=== PATIENT | male | born 1945 | race Asian ===

== ENCOUNTER 2020-03-15 09:30 | Emergency (ER) | payer OTHER, MEDICARE ==
[~2020-03-15] VITALS: Ht 162.6 cm; Wt 99.8 kg
[2020-03-15 09:37] VITALS: BP 150/67
[2020-03-15] MEDS ORDERED: HYDROcodone-ACET 5/325MG TAB PO ONE (10:30)
== END 2020-03-15 10:56 | disposition home or self-care (01) ==
LOC: ER 09:30
DX: M47.892 Other spondylosis, cervical region (principal); M19.011 Primary osteoarthritis, right shoulder; E11.9 Type 2 diabetes mellitus without complications; M10.9 Gout, unspecified; E78.5 Hyperlipidemia, unspecified; I10 Essential (primary) hypertension
CPT/HCPCS: 72040; 73030

== ENCOUNTER 2020-06-13 20:35 | Emergency (ER) | payer OTHER, MEDICARE ==
[~2020-06-13] VITALS: Ht 165.1 cm; Wt 98.4 kg
[2020-06-13 21:15] VITALS: BP 147/88
[2020-06-13] MEDS ORDERED: LIDOCAINE 1% HCL (LOCAL ANESTH.) INJ 20ML MDV IJ ONE (23:00)
== END 2020-06-13 23:19 | disposition home or self-care (01) ==
LOC: ER 20:35
DX: S62.634A Displaced fracture of distal phalanx of right ring finger, initial encounter for closed fracture (principal); S61.214A Laceration without foreign body of right ring finger without damage to nail, initial encounter; E11.9 Type 2 diabetes mellitus without complications; I10 Essential (primary) hypertension; E78.5 Hyperlipidemia, unspecified; W18.00XA Striking against unspecified object with subsequent fall, initial encounter; Y93.89 Activity, other specified; Y92.89 Other specified places as the place of occurrence of the external cause; Y99.8 Other external cause status
CPT/HCPCS: 12002; 29130; 73140; 99283; J2001

== ENCOUNTER 2020-09-30 07:53 | Emergency (ER) | payer MEDICARE, OTHER ==
[~2020-09-30] VITALS: Ht 160 cm; Wt 97.5 kg
[2020-09-30 09:16] LABS: Basophils # (auto) 0 10 ^3/uL (0-0.2); Eosinophils # (auto) 0.1 10 ^3/uL (0-0.8); Red Cell Distribution Width 14.2 % (11.8-14.3)
[2020-09-30 09:18] LABS: Basophils % (auto) 0.4 % (0.0-2.0); Eosinophils % (auto) 1.4 % (0.0-7.0); Hematocrit 37.3 % (41.0-53.0); Hemoglobin 12.2 g/dL (13.5-17.5); Lymphocytes # (auto) 1.4 10 ^3/uL (0.4-5.4); Lymphocytes % (auto) 19.3 % (10.0-50.0); Mean Corpuscular Hemoglobin 30.4 pg (28.0-32.0); Mean Corpuscular Hgb Conc. 32.6 g/dL (32.0-36.0); Mean Corpuscular Volume 93.2 fL (80.0-100.0); Monocytes # (auto) 0.5 10 ^3/uL (0-1.3); Monocytes % (auto) 6.7 % (0.0-12.0); Neutrophils # (auto) 5.1 10 ^3/uL (1.6-8.6); Neutrophils % (auto) 72.2 % (37.0-80.0); Platelet Count (auto) 59 10^3/uL (140-450)
[2020-09-30 09:28] LABS: INR 1.08 (0.9-1.15)
[2020-09-30 12:21] VITALS: BP 148/57
== END 2020-09-30 12:26 | disposition home or self-care (01) ==
LOC: ER 07:53
DX: U07.1 COVID-19 (principal); R04.0 Epistaxis; E11.9 Type 2 diabetes mellitus without complications; E78.5 Hyperlipidemia, unspecified; I10 Essential (primary) hypertension
CPT/HCPCS: 36415; 85025; 85610; 85730

== ENCOUNTER 2022-10-11 12:09 | Emergency (ER) | payer MEDICARE, OTHER ==
[~2022-10-11] VITALS: Ht 162.6 cm; Wt 90.0 kg
[2022-10-11] MEDS ORDERED: IOHEXOL 300 MG/ML 100ML BOTTLE IJ ONE (12:53)
[2022-10-11 13:18] LABS: Basophils # (auto) 0 10 ^3/uL (0-0.2); Basophils % (auto) 0.6 % (0.0-2.0); Eosinophils # (auto) 0.4 10 ^3/uL (0-0.8); Eosinophils % (auto) 5.1 % (0.0-7.0); Hematocrit 39.5 % (41.0-53.0); Hemoglobin 13.2 g/dL (13.5-17.5); Lymphocytes # (auto) 1.3 10 ^3/uL (0.4-5.4); Lymphocytes % (auto) 17.3 % (10.0-50.0); Mean Corpuscular Hemoglobin 31.4 pg (28.0-32.0); Mean Corpuscular Hgb Conc. 33.4 g/dL (32.0-36.0); Mean Corpuscular Volume 94.1 fL (80.0-100.0); Monocytes # (auto) 0.3 10 ^3/uL (0-1.3); Monocytes % (auto) 4.4 % (0.0-12.0); Neutrophils # (auto) 5.3 10 ^3/uL (1.6-8.6); Neutrophils % (auto) 72.6 % (37.0-80.0); Red Cell Distribution Width 13.8 % (11.8-14.3); White Blood Cell 7.3 10^3/uL (4.4-10.8)
[2022-10-11 13:24] LABS: INR 1.06 (0.9-1.15); Partial Thromboplastin Time 26.4 sec (24.6-33.4)
[2022-10-11 13:25] LABS: Albumin 3.6 g/dL (3.4-5.0); Calcium 8.9 mg/dL (8.5-10.1); Potassium 3.9 mmol/L (3.5-5.1)
[2022-10-11 13:29] LABS: BUN/Creatinine Ratio 15.6; Bilirubin, Total 0.6 mg/dL (0.2-1.0); Total Protein 6.8 g/dL (6.4-8.2)
[2022-10-11 22:00] VITALS: BP 115/52
== END 2022-10-11 22:12 | disposition home or self-care (01) ==
LOC: ER 12:09
DX: K92.1 Melena (principal); I72.3 Aneurysm of iliac artery
CPT/HCPCS: 36415; 74177; 80053; 85025; 85610; 85730; 93971; 99285; Q9967

== ENCOUNTER 2023-09-08 15:39 | Emergency (ER) | payer MEDICARE, OTHER ==
[~2023-09-08] VITALS: Ht 162.6 cm; Wt 94.0 kg
[2023-09-08] MEDS ORDERED: CEFU500T43 PO (22:29)
[2023-09-08 22:56] VITALS: BP 141/67; PULSE 61; RESP 18; O2SAT 97
== END 2023-09-08 22:58 | disposition home or self-care (01) ==
LOC: ER 15:39
DX: L03.116 Cellulitis of left lower limb (principal); E11.9 Type 2 diabetes mellitus without complications; I10 Essential (primary) hypertension; E78.5 Hyperlipidemia, unspecified
CPT/HCPCS: 73590; 82962; 99283; J7030

== ENCOUNTER 2023-11-11 10:44 | Inpatient (IN) | payer MEDICARE, OTHER ==
[2023-11-11] VITALS (12 sets, daily range): BP systolic 103–140; BP diastolic 33–60; PULSE 79–106; RESP 16–26; TEMP 97.9–98.7; O2SAT 100
[~2023-11-11] VITALS: Ht 162.6 cm; Wt 94.1 kg
[~2023-11-11 10:44] MED LIST: CEFU500T43 PO
[2023-11-11 11:33] LABS: Basophils # (auto) 0.1 10 ^3/uL (0-0.2)
[2023-11-11 11:35] LABS: Basophils % (auto) 0.4 % (0.0-2.0); Eosinophils # (auto) 0.1 10 ^3/uL (0-0.8); Eosinophils % (auto) 0.4 % (0.0-7.0); Hematocrit 15.4 % (41.0-53.0); Lymphocytes # (auto) 1.4 10 ^3/uL (0.4-5.4); Lymphocytes % (auto) 10.3 % (10.0-50.0); Mean Corpuscular Hemoglobin 29.2 pg (28.0-32.0); Mean Corpuscular Hgb Conc. 29.9 g/dL (32.0-36.0); Mean Corpuscular Volume 97.7 fL (80.0-100.0); Monocytes # (auto) 0.6 10 ^3/uL (0-1.3); Monocytes % (auto) 4.3 % (0.0-12.0); Neutrophils # (auto) 11.8 10 ^3/uL (1.6-8.6); Neutrophils % (auto) 84.6 % (37.0-80.0); Nucleated Red Blood Cells % 0.1 %; Red Blood Cells 1.58 10^6/uL (4.5-5.90); Red Cell Distribution Width 16.7 % (11.8-14.3)
[2023-11-11 11:39] LABS: Hemoglobin 4.6 g/dL (13.5-17.5)
[2023-11-11 11:51] LABS: Alanine Aminotransferase 31 U/L (7-40); Albumin 2.9 g/dL (3.2-4.8); Alkaline Phosphatase 75 U/L (46-116); Anion Gap 17 (5-15); Aspartate Aminotransferase 19 U/L (13-40); BUN/Creatinine Ratio 27.3 (10.0-20.0); Bilirubin, Total 0.3 mg/dL (0.2-1.0); Blood Urea Nitrogen 33 mg/dL (9-23); Calcium 7.9 mg/dL (8.7-10.4); Carbon Dioxide 14 mmol/L (20-30); Chloride 108 mmol/L (98-107); Glucose 310 mg/dL (74-106); Lipase 29 U/L (12-53); Magnesium 1.8 mg/dL (1.6-2.6); Potassium 4.4 mmol/L (3.5-5.1); Sodium 139 mmol/L (136-145); Total Protein 4.8 g/dL (5.7-8.2)
[2023-11-11] MEDS ORDERED: PANTOPRAZOLE 40 MG/10 ML VIAL INJ IV ONE ×2 (12:15→13:45)
[2023-11-11] MEDS ORDERED: SODIUM CHLORIDE 0.9% 1,000 ML IV ONE ×2 (12:15→13:30)
[2023-11-11 12:32] LABS: Lactic Acid w/Reflex 8.3 mmol/L (0.4-2.0)
[2023-11-11] MEDS ORDERED: PIPERACILLIN-TAZOB 3.375GM 100 ML IV ONE (12:45)
[2023-11-11] MEDS ORDERED: PANTOPRAZOLE 40mg/50ML NS AE 50 ML IV ONE ×2 (13:30→13:45)
[2023-11-11] MEDS ORDERED: SODIUM CHLORIDE 0.9% 1,000 ML IV SCH (13:45)
[2023-11-11] MEDS ORDERED: VANCOMYCIN PER PHARMACY 0 MG IV SCH (13:45)
[2023-11-11] MEDS ORDERED: DOCUSATE SOD 100 MG CAP PO PRN (13:45)
[2023-11-11] MEDS ORDERED: ONDANSETRON HCL 4 MG/2 ML VIAL IV PRN (13:45)
[2023-11-11] MEDS ORDERED: DEXTROSE (50%) 50ML SYRG IV PRN (13:45)
[2023-11-11] MEDS ORDERED: MORPHINE SULFATE INJ 2 MG/ml SYRG IV PRN (13:45)
[2023-11-11] MEDS ORDERED: FUROSEMIDE 20 MG/2 ML VIAL IV ONE (13:45)
[2023-11-11] MEDS ORDERED: CEFEPIME 2GM/50ML NS 50 ML IV ONE ×2 (14:15)
[2023-11-11] MEDS: OCTREOTIDE ACETATE 500 MCG in SODIUM CHL 0.9% 99 ML IV SCH ×2 (14:39→23:27)
[2023-11-11 14:49] LABS: INR 1.21 (0.9-1.15); Prothrombin Time 12.5 sec (9.3-11.8)
[2023-11-11] MEDS ORDERED: VANCOMYCIN 1GM/200ML 200 ML IV ONE (15:15)
[2023-11-11] MEDS: PANTOPRAZOLE 40mg/50ML NS AE 50 ML IV SCH ×2 (18:04→22:45)
[2023-11-11] MEDS: ACCU-CHEK COMFORT CURVE STRIP VI SCH (18:11)
[2023-11-11] MEDS: InsuLIN REG 1unit/0.01ml Soln (100units/ml) SC SCH (18:12)
[2023-11-11] MEDS: CEFEPIME 2GM/50ML NS 50 ML IV SCH (21:22)
[2023-11-11] MEDS: SODIUM CHLORIDE 0.9% 1,000 ML IV SCH (21:22)
[2023-11-11] MEDS ORDERED: OCTREOTIDE ACETATE 500 MCG/ML VL ONE (23:22)
[2023-11-12] MEDS: ACCU-CHEK COMFORT CURVE STRIP VI SCH ×5 (00:17→23:47)
[2023-11-12] MEDS: InsuLIN REG 1unit/0.01ml Soln (100units/ml) SC SCH ×4 (00:21→18:23)
[2023-11-12 00:50] VITALS: BP 116/58; PULSE 83; RESP 19; TEMP 97.8
[2023-11-12 00:53] LABS: Urine Epithelial Cast None Seen /hpf (<5)
[2023-11-12 01:02] LABS: Urine Bacteria NONE SEEN /hpf (None Seen); Urine Blood Negative /uL (Negative); Urine Clarity Clear (Clear); Urine Color Colorless (Yellow); Urine Protein, UAD Negative (Negative); Urine Specific Gravity 1.009 (1.001-1.035); Urine Urobilinogen Normal (Negative); Urine WBC 46 /hpf (0 - 3); Urine pH 5.5 (5.0-8.0)
[2023-11-12 02:36] LABS: Hematocrit 25.4 % (41.0-53.0); Hemoglobin 8.2 g/dL (13.5-17.5)
[2023-11-12] MEDS: PANTOPRAZOLE 40mg/50ML NS AE 50 ML IV SCH ×4 (05:15→19:48)
[2023-11-12 05:49] LABS: Alanine Aminotransferase 22 U/L (7-40); Alkaline Phosphatase 71 U/L (46-116); Anion Gap 9 (5-15); Aspartate Aminotransferase 16 U/L (13-40); BUN/Creatinine Ratio 20.4 (10.0-20.0); Blood Urea Nitrogen 22 mg/dL (9-23); Calcium 7.8 mg/dL (8.7-10.4); Carbon Dioxide 22 mmol/L (20-30); Chloride 113 mmol/L (98-107); Potassium 3.7 mmol/L (3.5-5.1); Sodium 144 mmol/L (136-145)
[2023-11-12 05:50] LABS: Bilirubin, Total 0.3 mg/dL (0.2-1.0); Total Protein 5.1 g/dL (5.7-8.2)
[2023-11-12] MEDS: CEFEPIME 2GM/50ML NS 50 ML IV SCH ×3 (05:58→22:47)
[2023-11-12 05:59] LABS: Basophils # (auto) 0 10 ^3/uL (0-0.2); Eosinophils # (auto) 0.4 10 ^3/uL (0-0.8); Hemoglobin 8.4 g/dL (13.5-17.5); Lymphocytes # (auto) 0.7 10 ^3/uL (0.4-5.4); Lymphocytes % (auto) 7.9 % (10.0-50.0); Monocytes # (auto) 0.2 10 ^3/uL (0-1.3); Neutrophils # (auto) 7.2 10 ^3/uL (1.6-8.6)
[2023-11-12 06:02] LABS: Basophils % (auto) 0.1 % (0.0-2.0); Eosinophils % (auto) 4.6 % (0.0-7.0); Hematocrit 25.3 % (41.0-53.0); Mean Corpuscular Hemoglobin 30.4 pg (28.0-32.0); Mean Corpuscular Hgb Conc. 33.4 g/dL (32.0-36.0); Monocytes % (auto) 2.9 % (0.0-12.0); Neutrophils % (auto) 84.5 % (37.0-80.0); Nucleated Red Blood Cells % 0.5 %; Red Blood Cells 2.78 10^6/uL (4.5-5.90); Red Cell Distribution Width 15.6 % (11.8-14.3); White Blood Cell 8.5 10^3/uL (4.4-10.8)
[2023-11-12 06:06] LABS: Glucose 121 mg/dL (74-106)
[2023-11-12 07:50] VITALS: PULSE 89; RESP 15; O2SAT 93
[2023-11-12] MEDS: OCTREOTIDE ACETATE 500 MCG in SODIUM CHL 0.9% 99 ML IV SCH (10:12)
[2023-11-12] MEDS: VANCOMYCIN 1GM/200ML 200 ML IV SCH (10:13)
[2023-11-12] MEDS: SODIUM CHLORIDE 0.9% 1,000 ML IV SCH (11:30)
[2023-11-12 13:46] LABS: Hematocrit 27.4 % (41.0-53.0); Hemoglobin 8.7 g/dL (13.5-17.5)
[2023-11-12 20:42] VITALS: PULSE 85; RESP 23; O2SAT 96
[2023-11-12] MEDS: SUCRALFATE 1 GM/10 ML ORAL SUSP GT SCH (22:47)
[2023-11-12 23:56] VITALS: BP 105/50; PULSE 85; RESP 18; TEMP 36.7; O2SAT 97
[2023-11-13] VITALS (7 sets, daily range): BP systolic 92–139; BP diastolic 40–74; PULSE 78–98; RESP 16–20; TEMP 97.4–98.5; O2SAT 95–97
[2023-11-13] MEDS: InsuLIN REG 1unit/0.01ml Soln (100units/ml) SC SCH ×4 (00:11→18:23)
[2023-11-13] MEDS: PANTOPRAZOLE 40mg/50ML NS AE 50 ML IV SCH ×5 (01:27→22:10)
[2023-11-13] MEDS: SODIUM CHLORIDE 0.9% 1,000 ML IV SCH ×3 (01:36→03:34)
[2023-11-13] MEDS: VANCOMYCIN 1GM/200ML 200 ML IV SCH (04:10)
[2023-11-13] MEDS: CEFEPIME 2GM/50ML NS 50 ML IV SCH (06:11)
[2023-11-13] MEDS: ACCU-CHEK COMFORT CURVE STRIP VI SCH ×3 (06:11→18:24)
[2023-11-13] MEDS: SUCRALFATE 1 GM/10 ML ORAL SUSP GT SCH ×4 (06:40→22:12)
[2023-11-13 06:47] LABS: Basophils # (auto) 0 10 ^3/uL (0-0.2); Eosinophils # (auto) 0.4 10 ^3/uL (0-0.8); Hemoglobin 7.9 g/dL (13.5-17.5); Lymphocytes # (auto) 0.8 10 ^3/uL (0.4-5.4); Monocytes # (auto) 0.5 10 ^3/uL (0-1.3); White Blood Cell 8.8 10^3/uL (4.4-10.8)
[2023-11-13 06:49] LABS: Basophils % (auto) 0.3 % (0.0-2.0); Hematocrit 24.6 % (41.0-53.0); Lymphocytes % (auto) 9.4 % (10.0-50.0); Mean Corpuscular Hemoglobin 29.9 pg (28.0-32.0); Mean Corpuscular Hgb Conc. 32.2 g/dL (32.0-36.0); Mean Corpuscular Volume 92.8 fL (80.0-100.0); Monocytes % (auto) 5.9 % (0.0-12.0); Neutrophils % (auto) 79.4 % (37.0-80.0); Nucleated Red Blood Cells % 0.1 %; Red Blood Cells 2.65 10^6/uL (4.5-5.90); Red Cell Distribution Width 16.2 % (11.8-14.3)
[2023-11-13 06:52] LABS: Anion Gap 8 (5-15); Carbon Dioxide 23 mmol/L (20-30); Chloride 113 mmol/L (98-107); Sodium 144 mmol/L (136-145)
[2023-11-13 06:53] LABS: Calcium 8.2 mg/dL (8.5-10.1)
[2023-11-13 06:58] LABS: BUN/Creatinine Ratio 14.1 (10.0-20.0); Blood Urea Nitrogen 14 mg/dL (9-23); Glucose 114 mg/dL (74-106)
[2023-11-13] MEDS ORDERED: LIDOCAINE VISCOUS 2% 15ML UD ONE (08:24)
[2023-11-13] MEDS ORDERED: MIDAZOLAM HCL 5 MG/ML-1ML VIAL ONE (08:24)
[2023-11-13] MEDS ORDERED: SODIUM CHLORIDE LOCK 0 ML ONE (08:24)
[2023-11-13] MEDS ORDERED: diphenhdrAMINE HCL 50 MG/1 ML VL ONE (08:24)
[2023-11-13] MEDS ORDERED: fentaNYL CITRATE 100 MCG/2 ML VL ONE (08:25)
[2023-11-13] MEDS ORDERED: SODIUM FERR GLUC 62.5MG/5ML 125 MG in SODIUM CHL 0.9% 100 ML IV ONE (12:00)
[2023-11-13] MEDS ORDERED: FLUMAZENIL 0.1 MG/ML INJ 10ML MDV IV ONE (12:02)
[2023-11-13] MEDS ORDERED: NALOXONE HCL 0.4 MG/ML VIAL ONE (12:02)
[2023-11-13] MEDS: ALPRAZolam 0.25 MG TAB PO PRN (15:02)
[2023-11-13] MEDS: PANTOPRAZOLE 40 MG/10 ML VIAL INJ IV SCH (22:12)
[2023-11-14] MEDS: InsuLIN REG 1unit/0.01ml Soln (100units/ml) SC SCH ×3 (01:18→11:45)
[2023-11-14] MEDS: PANTOPRAZOLE 40mg/50ML NS AE 50 ML IV SCH ×3 (03:32→11:29)
[2023-11-14 05:00] VITALS: BP 132/63; PULSE 67; RESP 17; TEMP 97.8; O2SAT 95
[2023-11-14] MEDS: ACCU-CHEK COMFORT CURVE STRIP VI SCH ×2 (06:00)
[2023-11-14] MEDS: SODIUM CHLORIDE 0.9% 1,000 ML IV SCH (06:12)
[2023-11-14 06:30] LABS: Basophils # (auto) 0 10 ^3/uL (0-0.2); Basophils % (auto) 0.2 % (0.0-2.0); Eosinophils # (auto) 0.4 10 ^3/uL (0-0.8); Eosinophils % (auto) 4.7 % (0.0-7.0); Monocytes # (auto) 0.6 10 ^3/uL (0-1.3); Neutrophils # (auto) 5.7 10 ^3/uL (1.6-8.6)
[2023-11-14 06:32] LABS: Hemoglobin 8.1 g/dL (13.5-17.5); Lymphocytes % (auto) 12.8 % (10.0-50.0); Mean Corpuscular Hemoglobin 29.4 pg (28.0-32.0); Mean Corpuscular Hgb Conc. 32.3 g/dL (32.0-36.0); Mean Corpuscular Volume 91.2 fL (80.0-100.0); Monocytes % (auto) 8.2 % (0.0-12.0); Neutrophils % (auto) 74.1 % (37.0-80.0); Nucleated Red Blood Cells % 0.2 %; Red Blood Cells 2.74 10^6/uL (4.5-5.90); Red Cell Distribution Width 15.9 % (11.8-14.3); White Blood Cell 7.7 10^3/uL (4.4-10.8)
[2023-11-14] MEDS: SUCRALFATE 1 GM/10 ML ORAL SUSP GT SCH ×2 (06:44→11:30)
[2023-11-14 06:50] LABS: Anion Gap 7 (5-15); Calcium 7.8 mg/dL (8.7-10.4); Carbon Dioxide 25 mmol/L (20-30); Chloride 112 mmol/L (98-107); Potassium 3.5 mmol/L (3.5-5.1); Sodium 144 mmol/L (136-145)
[2023-11-14 06:56] LABS: BUN/Creatinine Ratio 13.3 (10.0-20.0); Blood Urea Nitrogen 11 mg/dL (9-23); Glucose 125 mg/dL (74-106)
[2023-11-14 08:00] VITALS: PULSE 78; PULSE 88; RESP 18; O2SAT 95
[2023-11-14] MEDS: PANTOPRAZOLE 40 MG/10 ML VIAL INJ IV SCH (08:11)
[2023-11-14 09:00] VITALS: BP 120/80; PULSE 98; RESP 16; TEMP 97.4; O2SAT 95
[2023-11-14] MEDS ORDERED: cefTRIAXone 1GM/50ML D5W 50 ML IV SCH (09:00)
[2023-11-14] MEDS: ALPRAZolam 0.25 MG TAB PO PRN (11:27)
[2023-11-14 13:00] VITALS: BP 104/51; PULSE 79; RESP 17; TEMP 98.6; O2SAT 92
[2023-11-14 14:50] VITALS: BP 118/58; PULSE 79; RESP 17; TEMP 98.6; O2SAT 92
== END 2023-11-14 17:05 | disposition home or self-care (01) | DRG 377 ==
LOC: EDBD 10:44 → ER 10:44 → TELE 14:06 → TELE-WESTW 14:06
PROVIDERS: ADMIT Nurse Practitioner Family; ATTEND Nurse Practitioner Acute Care
PROC: 30233N1 Transfusion of Nonautologous Red Blood Cells into Peripheral Vein, Percutaneous Approach (ICD-10-PCS; principal; 2023-11-11)
DX: K92.2 Gastrointestinal hemorrhage, unspecified (principal); E43 Unspecified severe protein-calorie malnutrition; D62 Acute posthemorrhagic anemia; E87.20 Acidosis, unspecified; I48.0 Paroxysmal atrial fibrillation; E78.5 Hyperlipidemia, unspecified; I10 Essential (primary) hypertension; C61 Malignant neoplasm of prostate; I72.3 Aneurysm of iliac artery; M10.9 Gout, unspecified; I95.9 Hypotension, unspecified; R79.89 Other specified abnormal findings of blood chemistry; I35.0 Nonrheumatic aortic (valve) stenosis; E66.9 Obesity, unspecified; Z68.35 Body mass index [BMI] 35.0-35.9, adult; Z85.46 Personal history of malignant neoplasm of prostate; Z86.73 Personal history of transient ischemic attack (TIA), and cerebral infarction without residual deficits; Z87.11 Personal history of peptic ulcer disease; Z90.49 Acquired absence of other specified parts of digestive tract; Z79.02 Long term (current) use of antithrombotics/antiplatelets; E11.9 Type 2 diabetes mellitus without complications
CPT/HCPCS: 36415; 71045; 74176; 80048; 80053; 80320; 81001; 82010; 82270; 82962; 83036; 83605; 83690; 83735; 83880; 84484; 85014; 85018; 85025; 85610; 86850; 86900; 86901; 86920; 87040; 87081; 93005; 93306; 97110; 97116; 97163; 97530; 99291; C9113; G0378; J0692; J1815; J2250; J2543